=== PATIENT | male | born 1995 | race Caucasian/White ===

== ENCOUNTER 2024-05-21 12:45 | Outpatient (CLI) | payer BC, SELFPAY ==
--- NOTE | ~2024-05-21 | US_ITS ---
EXAMINATION: US scrotum doppler DATE: 05/21/2024 13:26 INDICATION: Other specified disorders of the male genitalia. Lump of right testicle. TECHNIQUE: Grayscale and Doppler ultrasound images of the testes were obtained. COMPARISON: None. FINDINGS: The right testis measures 3.5 x 2.5 x 2.8 cm. The left testis measures 4.6 x 2.3 x 2.9 cm. There is normal vascular flow to both testes. The right epididymis is normal with normal vascular sarah w. The left epididymis demonstrates a 4 mm cyst. There is a 4 mm scrotolith on the right. There is no varicocele or hydrocele. IMPRESSION: 1. 4 mm scrotolith in the patient's area of concern. Reviewed, dictated and finalized at location A. TIME [employer]
== END 2024-05-21 12:46 | disposition home or self-care (01) ==
PROVIDERS: PCP Family Medicine; Visit Provider Family Medicine
DX: N50.89 Other specified disorders of the male genital organs (principal)
CPT/HCPCS: 76870; 93976